=== PATIENT | female | born 1965 | race Caucasian/White ===

== ENCOUNTER 2017-07-06 19:41 | Inpatient (IN) | payer MEDICAID ==
[~2017-07-06] VITALS: Ht 170.2 cm; Wt 63.3 kg
[~2017-07-06 19:41] MED LIST: AZIT250T89 PO; CEFD300C37 PO
[2017-07-06] MEDS ORDERED: SODIUM CHLORIDE 0.9% 1,000ML IVBOLUS ONE ×2 (20:00→22:00)
[2017-07-06] MEDS ORDERED: SODIUM CHLORIDE FLUSH 10ML SYR IVF ONE (20:00)
[2017-07-06 20:12] LABS: HEMOGLOBIN 13.9 g/dL (11.7-16.4); WHITE BLOOD COUNT 26.4 x10^3/uL (3.4-10)
[2017-07-06 20:19] LABS: BLOOD UREA NITROGEN 9 mg/dL (7-18)
[2017-07-06] MEDS ORDERED: MAALOX/HYOSCYAMINE/LIDOCAINE 45 ML BTL PO ONE (20:30)
[2017-07-06] MEDS ORDERED: KETOROLAC 30 MG/1 ML IVPush ONE (20:30)
[2017-07-06 20:31] LABS: IS PT STATUS REG ER OR PRE ER? YES
[2017-07-06] MEDS ORDERED: KETOROLAC 30 MG/1 ML ONE (20:32)
[2017-07-06 20:43] LABS: DIFF TOTAL CELLS COUNTED 100 CELL DIFF
[2017-07-06 20:45] LABS: VERIFY COUNTS? YES
[2017-07-06] MEDS ORDERED: OMNIPAQUE 350 MG/ML, 100ML BOTTLE ONE (21:43)
[2017-07-06] MEDS ORDERED: AZITHROMYCIN 500 MG in SODIUM CHLORIDE 0.9% 250 ML IV ONE (22:00)
[2017-07-06] MEDS ORDERED: CEFTRIAXONE PMX 1GM/50ML 50 ML IV ONE (22:00)
[2017-07-06] MEDS ORDERED: CEFTRIAXONE PMX 1GM/50ML 50 ML ONE (22:09)
[2017-07-06] MEDS ORDERED: SODIUM CHLORIDE 0.9% 1,000 ML IV ONE (22:13)
[2017-07-06] MEDS ORDERED: morphine SULFATE 10 MG/ML, 1ML ONE (22:29)
[2017-07-06] MEDS ORDERED: MORPHINE SULFATE 4 MG/ML, 1ML IVPush PRN (22:30)
[2017-07-06] MEDS ORDERED: ONDANSETRON 2MG/ML, 2ML ONE (22:30)
[2017-07-06] MEDS ORDERED: ONDANSETRON 2MG/ML, 2ML IVPush PRN ×2 (22:30→23:00)
[2017-07-06] MEDS ORDERED: hydrALAzine 20 MG/ML, 1ML IVPush PRN (23:00)
[2017-07-06] MEDS ORDERED: CEFTRIAXONE PMX 1GM/50ML 50 ML IV SCH (23:00)
[2017-07-06] MEDS ORDERED: AZITHROMYCIN 500 MG in SODIUM CHLORIDE 0.9% 250 ML IV SCH (23:00)
[2017-07-06 23:20] VITALS: BP 75/41
[2017-07-06 23:35] VITALS: BP 88/51
[2017-07-06 23:55] VITALS: BP 87/57
[2017-07-07] MEDS: GUAIFENESIN/DM 200-20MG, 10ML UDC PO PRN ×2 (00:22→18:28)
[2017-07-07] MEDS: ACETAMINOPHEN 325 MG TABLET PO PRN ×2 (00:22→10:21)
[2017-07-07] MEDS: ENOXAPARIN 40 MG/0.4 ML SQ SCH ×2 (00:24→22:41)
[2017-07-07] MEDS ORDERED: SODIUM CHLORIDE 0.9% 1,000ML IVBOLUS ONE ×2 (00:30→04:00)
[2017-07-07 00:34] VITALS: BP 110/67
[2017-07-07] MEDS: SODIUM CHLORIDE 0.9% 1,000 ML IV SCH ×2 (00:35→14:39)
[2017-07-07 02:22] VITALS: BP 84/52
[2017-07-07 03:46] VITALS: BP 81/52
[2017-07-07 04:01] VITALS: BP 84/55
[2017-07-07 04:22] VITALS: BP 79/52
[2017-07-07] MEDS ORDERED: VANCOMYCIN PER PHARMACY MC PRN (04:30)
[2017-07-07] MEDS ORDERED: PHARMACOKINETIC MONITORING MC PRN (04:30)
[2017-07-07] MEDS ORDERED: PHARMACOKINETIC CONSULTATION MC ONE (04:30)
[2017-07-07] MEDS: PIPERACILLIN/TAZO/PMX 4.5GM 100 ML IV SCH ×4 (04:36→22:40)
[2017-07-07 04:39] VITALS: BP 76/51
[2017-07-07] MEDS: NOREPINEPHRINE 4 MG in SODIUM CHLORIDE 0.9% 246 ML IV PRN ×2 (05:02→07:20)
[2017-07-07] MEDS: VANCOMYCIN 1,100 MG in SODIUM CHLORIDE 0.9% 250 ML IV SCH ×2 (05:17→22:44)
[2017-07-07 05:50] LABS: HEMATOCRIT 33.8 % (34.6-47.8); HEMOGLOBIN 11.4 g/dL (11.7-16.4); WHITE BLOOD COUNT 17.4 x10^3/uL (3.4-10)
[2017-07-07 06:02] LABS: BLOOD UREA NITROGEN 11 mg/dL (7-18)
[2017-07-07 06:12] LABS: DIFF TOTAL CELLS COUNTED 100 CELL DIFF
[2017-07-07 06:14] LABS: VERIFY COUNTS? YES
[2017-07-07] MEDS ORDERED: POTASSIUM PHOSPHATE 44 MEQ in SODIUM CHLORIDE 0.9% 500 ML IV ONE (07:30)
[2017-07-07] MEDS ORDERED: MAGNESIUM SULFATE PMX 4GM/100M 100 ML IV ONE (07:30)
[2017-07-07] MEDS ORDERED: ALBUTEROL/IPRATROPIUM 2.5MG/0.5MG, 3 ML ONE (15:50)
[2017-07-07] MEDS: KETOROLAC 30 MG/1 ML IVPush PRN (18:28)
[2017-07-07] MEDS: ALBUTEROL/IPRATROPIUM 2.5MG/0.5MG, 3 ML NPPB SCH (21:40)
[2017-07-08] MEDS: TRAZODONE 50MG TABLET PO PRN ×2 (02:40→23:48)
[2017-07-08] MEDS: SODIUM CHLORIDE 0.9% 1,000 ML IV SCH ×3 (02:42→22:25)
[2017-07-08] MEDS: PIPERACILLIN/TAZO/PMX 4.5GM 100 ML IV SCH ×2 (05:13→12:10)
[2017-07-08 05:35] LABS: HEMATOCRIT 31.2 % (34.6-47.8); HEMOGLOBIN 10.8 g/dL (11.7-16.4); WHITE BLOOD COUNT 21.7 x10^3/uL (3.4-10)
[2017-07-08 05:37] VITALS: BP 94/50
[2017-07-08 05:38] LABS: ASPARTATE AMINO TRANSFERASE 11 U/L (15-37); BLOOD UREA NITROGEN 12 mg/dL (7-18)
[2017-07-08 06:53] LABS: DIFF TOTAL CELLS COUNTED 100 CELL DIFF
[2017-07-08] MEDS: ALBUTEROL/IPRATROPIUM 2.5MG/0.5MG, 3 ML NPPB SCH ×4 (07:20→19:25)
[2017-07-08 07:37] LABS: VERIFY COUNTS? YES
[2017-07-08 08:45] VITALS: BP 90/50
[2017-07-08] MEDS: GUAIFENESIN/DM 200-20MG, 10ML UDC PO PRN (09:05)
[2017-07-08] MEDS: ACETAMINOPHEN 325 MG TABLET PO PRN ×2 (09:17→18:50)
[2017-07-08] MEDS ORDERED: PNEUMOCOCCAL 23 VACCINE IM-VACC ONE (10:00)
[2017-07-08] MEDS: VANCOMYCIN 1,100 MG in SODIUM CHLORIDE 0.9% 250 ML IV SCH (12:56)
[2017-07-08] MEDS: PIPERACILLIN/TAZO 4.5 GM in DEXTROSE 5% 100 ML IV SCH ×2 (17:41→23:49)
[2017-07-08 21:15] VITALS: BP 119/71
[2017-07-08] MEDS: KETOROLAC 30 MG/1 ML IVPush PRN (22:24)
[2017-07-08] MEDS: ENOXAPARIN 40 MG/0.4 ML SQ SCH (22:25)
[2017-07-09] MEDS: VANCOMYCIN 1,100 MG in SODIUM CHLORIDE 0.9% 250 ML IV SCH ×2 (01:46→13:14)
[2017-07-09] MEDS: PIPERACILLIN/TAZO 4.5 GM in DEXTROSE 5% 100 ML IV SCH ×4 (05:09→23:41)
[2017-07-09] MEDS: SODIUM CHLORIDE 0.9% 1,000 ML IV SCH ×2 (05:30→11:23)
[2017-07-09 06:10] LABS: HEMOGLOBIN 11.1 g/dL (11.7-16.4); WHITE BLOOD COUNT 14.3 x10^3/uL (3.4-10)
[2017-07-09 06:22] LABS: BLOOD UREA NITROGEN 10 mg/dL (7-18)
[2017-07-09 06:31] LABS: DIFF TOTAL CELLS COUNTED 100 CELL DIFF
[2017-07-09 06:34] LABS: VERIFY COUNTS? YES
[2017-07-09 07:56] VITALS: BP 125/72
[2017-07-09] MEDS: ALBUTEROL/IPRATROPIUM 2.5MG/0.5MG, 3 ML NPPB SCH (08:00)
[2017-07-09] MEDS: GUAIFENESIN/DM 200-20MG, 10ML UDC PO PRN ×2 (09:06→23:40)
[2017-07-09 14:28] VITALS: BP 124/79
[2017-07-09 20:09] VITALS: BP 109/65
[2017-07-09] MEDS: KETOROLAC 30 MG/1 ML IVPush PRN (23:41)
[2017-07-09] MEDS: ENOXAPARIN 40 MG/0.4 ML SQ SCH (23:42)
[2017-07-09] MEDS: TRAZODONE 50MG TABLET PO PRN (23:42)
[2017-07-10] MEDS: PIPERACILLIN/TAZO 4.5 GM in DEXTROSE 5% 100 ML IV SCH ×3 (00:10→08:34)
[2017-07-10] MEDS: KETOROLAC 30 MG/1 ML IVPush PRN (00:10)
[2017-07-10 02:58] VITALS: BP 121/65
[2017-07-10] MEDS: VANCOMYCIN 1,100 MG in SODIUM CHLORIDE 0.9% 250 ML IV SCH (04:25)
[2017-07-10] MEDS: SODIUM CHLORIDE 0.9% 1,000 ML IV SCH ×4 (04:26→23:57)
[2017-07-10 06:06] LABS: HEMATOCRIT 32.2 % (34.6-47.8); HEMOGLOBIN 10.9 g/dL (11.7-16.4); WHITE BLOOD COUNT 9.3 x10^3/uL (3.4-10)
[2017-07-10 06:11] LABS: BLOOD UREA NITROGEN 5 mg/dL (7-18)
[2017-07-10 06:15] LABS: ASPARTATE AMINO TRANSFERASE 9 U/L (15-37)
[2017-07-10] MEDS ORDERED: ALBUTEROL/IPRATROPIUM 2.5MG/0.5MG, 3 ML NPPB PRN (07:00)
[2017-07-10 07:41] VITALS: BP 130/74
[2017-07-10] MEDS: GUAIFENESIN/DM 200-20MG, 10ML UDC PO PRN (10:52)
[2017-07-10] MEDS: DOXYCYCLINE 100MG TABLET PO SCH ×2 (10:52→21:48)
[2017-07-10] MEDS: CEFTRIAXONE PMX 1GM/50ML 50 ML IV SCH (10:52)
[2017-07-10 14:09] VITALS: BP 119/73
[2017-07-10] MEDS ORDERED: ONDANSETRON 2MG/ML, 2ML IVPush PRN (19:30)
[2017-07-10] MEDS ORDERED: hydrALAzine 20 MG/ML, 1ML IVPush PRN (19:30)
[2017-07-10 19:50] VITALS: BP 127/73
[2017-07-10] MEDS: TRAZODONE 50MG TABLET PO PRN (21:48)
[2017-07-10] MEDS: ENOXAPARIN 40 MG/0.4 ML SQ SCH ×2 (21:49→21:51)
[2017-07-11] MEDS: GUAIFENESIN/DM 200-20MG, 10ML UDC PO PRN ×3 (02:43→20:32)
[2017-07-11] MEDS: KETOROLAC 30 MG/1 ML IVPush PRN ×2 (02:58→20:32)
[2017-07-11 03:53] VITALS: BP 133/76
[2017-07-11 05:23] LABS: HEMATOCRIT 33.2 % (34.6-47.8); HEMOGLOBIN 11.3 g/dL (11.7-16.4); WHITE BLOOD COUNT 11.2 x10^3/uL (3.4-10)
[2017-07-11 05:36] LABS: BLOOD UREA NITROGEN 3 mg/dL (7-18)
[2017-07-11] MEDS: SODIUM CHLORIDE 0.9% 1,000 ML IV SCH (07:41)
[2017-07-11 07:44] VITALS: BP 125/73
[2017-07-11] MEDS: DOXYCYCLINE 100MG TABLET PO SCH ×2 (09:15→20:32)
[2017-07-11] MEDS: CEFTRIAXONE PMX 1GM/50ML 50 ML IV SCH (12:20)
[2017-07-11 15:15] VITALS: BP 135/74
[2017-07-11 19:59] VITALS: BP 124/68
[2017-07-11] MEDS: ENOXAPARIN 40 MG/0.4 ML SQ SCH (20:32)
[2017-07-12 02:34] VITALS: BP 115/70
[2017-07-12 04:56] LABS: HEMATOCRIT 34.3 % (34.6-47.8); HEMOGLOBIN 11.6 g/dL (11.7-16.4); WHITE BLOOD COUNT 7.6 x10^3/uL (3.4-10)
[2017-07-12 05:03] LABS: BLOOD UREA NITROGEN 4 mg/dL (7-18)
[2017-07-12 07:45] VITALS: BP 130/77
[2017-07-12] MEDS: DOXYCYCLINE 100MG TABLET PO SCH (08:39)
[2017-07-12] MEDS: GUAIFENESIN/DM 200-20MG, 10ML UDC PO PRN (08:46)
[2017-07-12] MEDS ORDERED: FLU VACC QS2017-18 (36MOS+) UP/PF 0.5 ML IM-VACC ONE (10:30)
[2017-07-12] MEDS: CEFTRIAXONE PMX 1GM/50ML 50 ML IV SCH (11:00)
[2017-07-12] MEDS ORDERED: CEFD300C37 PO (13:50)
[2017-07-12] MEDS ORDERED: DOXY100C15 PO (13:50)
[2017-07-12 14:03] VITALS: BP 128/78
== END 2017-07-12 14:27 | disposition home health service (06) | DRG 871 ==
LOC: ED 22:19 → EDIP 22:20 → 4WST 23:25 → CSU 07-07 04:48 → CCU 07-07 17:02 → 4NOR 07-08 08:41
PROVIDERS: ADMIT Hospitalist; ATTEND Hospitalist
DX: A41.9 Sepsis, unspecified organism (principal); E43 Unspecified severe protein-calorie malnutrition; J96.00 Acute respiratory failure, unspecified whether with hypoxia or hypercapnia; R65.21 Severe sepsis with septic shock; J15.9 Unspecified bacterial pneumonia; D64.9 Anemia, unspecified; E83.42 Hypomagnesemia; F15.10 Other stimulant abuse, uncomplicated; E87.6 Hypokalemia; F17.210 Nicotine dependence, cigarettes, uncomplicated; Z77.098 Contact with and (suspected) exposure to other hazardous, chiefly nonmedicinal, chemicals; Z71.51 Drug abuse counseling and surveillance of drug abuser; Z23 Encounter for immunization; Z68.21 Body mass index [BMI] 21.0-21.9, adult
CPT/HCPCS: 36415; 71020; 71275; 80048; 80053; 80202; 82040; 83605; 83735; 84100; 84145; 84484; 85025; 85379; 87040; 87081; 90686; 90732; 93005; 94640; 96361; 96365; 96375; J0456; J0696; J1650; J1885; J2405; J2543; J3370; J7620; Q9967; J3475; J7030; J7040; J7050

== ENCOUNTER 2017-07-22 05:02 | Emergency (ER) | payer MEDICAID ==
[~2017-07-22] VITALS: Ht 172.7 cm; Wt 54.9 kg
[~2017-07-22 05:02] MED LIST changes: +DOXY100C15 PO
[2017-07-22] MEDS ORDERED: SODIUM CHLORIDE FLUSH 10ML SYR IVF ONE (05:30)
[2017-07-22] MEDS ORDERED: KETOROLAC 30 MG/1 ML IVPush ONE (05:30)
[2017-07-22] MEDS ORDERED: MORPHINE SULFATE 4 MG/ML, 1ML IVPush PRN (05:30)
[2017-07-22] MEDS ORDERED: SODIUM CHLORIDE 0.9% 1,000ML IVBOLUS ONE (05:30)
[2017-07-22 05:55] LABS: HEMATOCRIT 30.7 % (34.6-47.8); HEMOGLOBIN 10.6 g/dL (11.7-16.4); WHITE BLOOD COUNT 8.4 x10^3/uL (3.4-10)
[2017-07-22] MEDS ORDERED: morphine SULFATE 10 MG/ML, 1ML ONE (06:06)
[2017-07-22] MEDS ORDERED: KETOROLAC 30 MG/1 ML ONE (06:06)
[2017-07-22 06:08] LABS: ASPARTATE AMINO TRANSFERASE 6 U/L (15-37); BLOOD UREA NITROGEN 11 mg/dL (7-18)
[2017-07-22 06:29] LABS: IS PT STATUS REG ER OR PRE ER? YES
[2017-07-22 06:37] VITALS: BP 116/72
== END 2017-07-22 06:51 | disposition home or self-care (01) ==
LOC: ED 05:35
DX: J18.1 Lobar pneumonia, unspecified organism (principal); Z87.891 Personal history of nicotine dependence
CPT/HCPCS: 36415; 71010; 80053; 83880; 84484; 85025; 85610; 85730; 93005; 96361; 96374; 96375; 99285; J1885; J7030

== ENCOUNTER 2019-11-04 07:01 | Emergency (ER) | payer SELFPAY ==
[~2019-11-04] VITALS: Ht 172.7 cm; Wt 56.0 kg
--- NOTE | 2019-11-04 07:43 | NUR ---
pt to ambulatory to imaging, gait steady, no signs of distress.
[2019-11-04] MEDS ORDERED: theraflu (07:55)
[2019-11-04] MEDS ORDERED: mucinex PO (07:55)
[2019-11-04] MEDS ORDERED: ALBUTEROL/IPRATROPIUM 2.5MG/0.5MG, 3 ML NPPB ONE (08:00)
[2019-11-04] MEDS ORDERED: ALBUTEROL/IPRATROPIUM 2.5MG/0.5MG, 3 ML ONE (08:12)
--- NOTE | 2019-11-04 08:15 | NUR ---
rt at bedside.
[2019-11-04 08:49] VITALS: BP 117/64
== END 2019-11-04 08:58 ==
LOC: ED 08:45
DX: J10.1 Influenza due to other identified influenza virus with other respiratory manifestations (principal); F17.210 Nicotine dependence, cigarettes, uncomplicated
CPT/HCPCS: 71046; 94640; 99283